=== PATIENT | female | born 1980 | race African-American/Black ===

== ENCOUNTER 2018-02-10 06:08 | Inpatient (IN) ==
[2018-02-04 11:18] LABS: Basophils # 0.1 10*3/uL (0.0-0.2); Basophils % 1.1 % (0.0-0.8); Eosinophils # 0.1 10*3/uL (0.0-0.87); Eosinophils % 2.2 % (0.00-10.9); Hematocrit 42.3 VOL% (35.7-47.0); Hemoglobin 13.8 GM/DL (12.0-16.0); Immature Granulocytes % 0.2 %; Immature Granulocytes Absolute 0.01 #; Lymphocytes # 2.1 10*3/uL (1.4-4.0); Lymphocytes % 46.7 % (21.3-54.2); Mean Corpuscular HGB Conc 32.6 GM/DL (32-36); Mean Corpuscular Hemoglobin 32 PG (27-34); Mean Platelet Volume 11.6 FL (9.6-12.0); Monocytes # 0.3 10*3/uL (0.11-0.8); Monocytes % 5.6 % (1.7-12.7); Neutrophils % 44.2 % (38.7-73.9); Platelet Count 196 T/CUMM (130-400); Red Blood Count 4.36 MC/CUMM (3.8-5.5); Red Cell Distribution Width 12.9 % (9.3-17.3); White Blood Count 4.5 T/CUMM (4-12)
[2018-02-04 11:29] LABS: Apearance,Urine Slightly Hazy (Clear); Bacteria,Urine Occasional /HPF (Few); Bilirubin,Urine Negative (Negative); Blood, Urine Negative (Negative); Glucose,Urine (UA) Negative (Negative); Ketones,Urine Negative (Negative); Mucus,Urine Occasional /LPF (Occasional); Nitrite,Urine Negative (Negative); Protein,Urine Negative; RBC,Urine 2 /HPF (0-4); Squamous Epithelial Cell,Urine Occasional /HPF (0-10); Urine Color Yellow (Yellow); Urine Urobilinogen < 2.0 EU/DL (0.2-1.0); WBC,Urine <1 /HPF (0-6)
[2018-02-04 11:43] LABS: Alanine Aminotransferase 19 U/L (13-56); Albumin 3.6 G/DL (3.4-5.0); Alkaline Phosphatase 80 U/L (45-117); Amylase 46 U/L (25-115); Aspartate Amino Transferase 23 U/L (0-37); Bilirubin,Total < 0.39 MG/DL (0.2-1.0); Blood Urea Nitrogen 8 MG/DL (7-18); Calcium 8.8 MG/DL (8.5-10.1); Cholesterol 178 MG/DL (50-200); Glucose 90 MG/DL (74-106); HDL Cholesterol 62 MG/DL (40-60); Osmolality,Calculated 280.1 MOS/KG (273-304); Potassium 3.9 MMOL/L (3.5-5.1); Risk Ratio 2.87; Sodium 142 MMOL/L (136-145); Total Protein 7.3 G/DL (6.4-8.3); Triglycerides 60 MG/DL (2-150)
[2018-02-04 12:45] LABS: HIV Antigen/Antibody Result Nonreactive (Nonreactive)
[~2018-02-10 06:08] MED LIST: AMPICILLIN/SULBACTAM 3,000 MG VIAL ONE; ceFAZolin 1,000 MG VIAL ONE
[2018-02-10] MEDS ORDERED: AMPICILLIN/SULBACTAM 3,000 MG in SODIUM CHLORIDE 0.9% 100 ML IV ONE (07:00)
[2018-02-10] MEDS ORDERED: ceFAZolin 1,000 MG in SYRINGE 1 EACH IV ONE (07:00)
[2018-02-10] MEDS ORDERED: LACTATED RINGERS 1,000 ML IV SCH (07:00)
[2018-02-10] MEDS ORDERED: DIAZEPAM 5 MG TABLET PO ONE (07:27)
[2018-02-10] MEDS ORDERED: FAMOTIDINE 20 MG TABLET PO ONE (07:27)
[2018-02-10] MEDS ORDERED: DIAZEPAM 5 MG TABLET ONE (07:42)
[2018-02-10] MEDS ORDERED: FAMOTIDINE 20 MG TABLET ONE (07:42)
[2018-02-10] MEDS ORDERED: TISSUE ADHESIVE 1 EACH APPLICATOR TOP ONE (13:58)
[2018-02-10] MEDS ORDERED: SEVOFLURANE 1 UNIT/15 MINUTE INH ONE (14:20)
[2018-02-10] MEDS ORDERED: fentaNYL 100 MCG/2 ML VIAL ONE (14:20)
[2018-02-10] MEDS ORDERED: MIDAZOLAM 2 MG/2 ML VIAL ONE (14:20)
[2018-02-10] MEDS ORDERED: PROPOFOL 200 MG/20 ML VIAL IV ONE (14:20)
[2018-02-10] MEDS ORDERED: ePHEDrine 50 MG/ML AMP ONE (14:22)
[2018-02-10] MEDS ORDERED: ONDANSETRON 4 MG/2 ML VIAL ONE ×2 (14:22→14:31)
[2018-02-10] MEDS ORDERED: DEXAMETHASONE 10 MG/1 ML VIAL ONE (14:22)
[2018-02-10] MEDS ORDERED: PHENYLEPHRINE 1 MG/10 ML SYRINGE IV ONE (14:23)
[2018-02-10] MEDS ORDERED: GLYCOPYRROLATE 0.4 MG/2 ML VIAL ONE (14:23)
[2018-02-10] MEDS ORDERED: ACETAMINOPHEN 1,000 MG/100 ML VIAL IV ONE (14:23)
[2018-02-10] MEDS ORDERED: ROCURONIUM 100 MG/10 ML VIAL IV ONE (14:23)
[2018-02-10] MEDS ORDERED: LACTATED RINGERS 1,000 ML IV ONE (14:23)
[2018-02-10] MEDS ORDERED: NEOSTIGMINE 10 MG/10 ML VIAL ONE (14:23)
[2018-02-10] MEDS ORDERED: ONDANSETRON 4 MG/2 ML VIAL IV PRN (14:25)
[2018-02-10] MEDS ORDERED: MORPHINE 10 MG/1 ML VIAL ONE (14:31)
[2018-02-10] MEDS: MORPHINE 10 MG/1 ML VIAL IV PRN ×5 (14:35→14:58)
[2018-02-10] MEDS ORDERED: HYDROmorphone PCA 30 MG/30 ML SYRINGE IV SCH (15:24)
[2018-02-10] MEDS ORDERED: IBUPROFEN 800 MG TABLET PO PRN (15:24)
[2018-02-10] MEDS ORDERED: MAGNESIUM HYDROXIDE SUSP 30 ML UDCUP PO PRN (15:24)
[2018-02-10] MEDS ORDERED: NALOXONE 0.4 MG/ML VIAL IV PRN (15:24)
[2018-02-10] MEDS ORDERED: DOCUSATE SODIUM 100 MG CAPSULE PO PRN (15:24)
[2018-02-10] MEDS ORDERED: BISACODYL 10 MG SUPP RECTAL PRN (15:24)
[2018-02-10] MEDS ORDERED: BENZOCAINE/MENTHOL LOZENGE 18/BOX PO PRN (15:24)
[2018-02-10] MEDS ORDERED: ACETAMINOPHEN 325 MG TABLET PO PRN (15:24)
[2018-02-10] MEDS ORDERED: HYDROmorphone 2 MG/1 ML VIAL IV PRN (15:31)
[2018-02-10] MEDS: PROMETHAZINE 25 MG/1 ML VIAL IM PRN (16:14)
[2018-02-10] MEDS: LACTATED RINGERS 1,000 ML IV SCH (17:16)
[2018-02-10] MEDS: ceFAZolin 1,000 MG in SYRINGE 1 EACH IV SCH (20:39)
[2018-02-10] MEDS ORDERED: SIMETHICONE CHEW 80 MG TABLET PO PRN (21:14)
[2018-02-10] MEDS: ONDANSETRON 4 MG/2 ML VIAL IV PRN (22:41)
[2018-02-10] MEDS: MEPERIDINE 25 MG/1 ML VIAL IV PRN (22:44)
[2018-02-11] MEDS: LACTATED RINGERS 1,000 ML IV SCH ×3 (01:01→18:13)
[2018-02-11] MEDS: ONDANSETRON 4 MG/2 ML VIAL IV PRN ×2 (03:12→16:15)
[2018-02-11] MEDS: MEPERIDINE 25 MG/1 ML VIAL IV PRN ×2 (03:27→06:42)
[2018-02-11] MEDS: ceFAZolin 1,000 MG in SYRINGE 1 EACH IV SCH (03:32)
[2018-02-11] MEDS: PROMETHAZINE 25 MG/1 ML VIAL IM PRN (06:25)
[2018-02-11 07:21] LABS: Basophils % 0.1 % (0.0-0.8); Hematocrit 44.1 VOL% (35.7-47.0); Hemoglobin 14.8 GM/DL (12.0-16.0); Immature Granulocytes % 0.7 %; Immature Granulocytes Absolute 0.09 #; Lymphocytes # 1.8 10*3/uL (1.4-4.0); Lymphocytes % 12.7 % (21.3-54.2); Mean Corpuscular HGB Conc 33.6 GM/DL (32-36); Mean Corpuscular Hemoglobin 32 PG (27-34); Mean Corpuscular Volume 94.2 FL (87-102); Mean Platelet Volume 12.4 FL (9.6-12.0); Monocytes # 0.4 10*3/uL (0.11-0.8); Neutrophils # 11.6 10*3/uL (1.4-7.4); Neutrophils % 83.5 % (38.7-73.9); Platelet Count 161 T/CUMM (130-400); Red Blood Count 4.68 MC/CUMM (3.8-5.5); Red Cell Distribution Width 12.9 % (9.3-17.3); White Blood Count 13.8 T/CUMM (4-12)
[2018-02-11] MEDS ORDERED: HYDROmorphone 2 MG/1 ML VIAL IV PRN (09:23)
[2018-02-11] MEDS: METOCLOPRAMIDE 10 MG/2 ML VIAL IV PRN ×2 (10:19→21:34)
[2018-02-11] MEDS: VENLAFAXINE 37.5 MG TABLET PO SCH (10:41)
[2018-02-11] MEDS ORDERED: ALUMINUM/MAGNES/SIMETH MAX STR 30 ML UDCUP PO PRN (14:10)
[2018-02-11] MEDS: amLODIPine 5 MG TABLET PO SCH (15:57)
[2018-02-11] MEDS ORDERED: ACETAMINOPHEN 500 MG TABLET PO PRN (16:00)
[2018-02-11] MEDS: FAMOTIDINE 20 MG/2 ML VIAL IV SCH (18:16)
[2018-02-12] MEDS: LACTATED RINGERS 1,000 ML IV SCH (02:30)
[2018-02-12] MEDS: FAMOTIDINE 20 MG/2 ML VIAL IV SCH ×2 (06:14→17:52)
[2018-02-12] MEDS: VENLAFAXINE 37.5 MG TABLET PO SCH (09:11)
[2018-02-12] MEDS: amLODIPine 5 MG TABLET PO SCH (09:11)
[2018-02-13 07:53] VITALS: BP 121/79
[2018-02-13] MEDS: amLODIPine 5 MG TABLET PO SCH (08:22)
[2018-02-13] MEDS: VENLAFAXINE 37.5 MG TABLET PO SCH (08:22)
[2018-02-13] MEDS ORDERED: INFLUENZA VIRUS VACCINE 0.5 ML SYRINGE IM ONE (13:22)
[2018-02-13] MEDS ORDERED: ESTRADIOL VALERATE IM 100 MG/5 ML VIAL IM ONE (14:43)
== END 2018-02-13 16:55 | disposition home or self-care (01) | DRG 742 ==
LOC: N.OR 06:08 → N.SDSINP 06:09 → N.OB 14:11
PROVIDERS: ADMIT Obstetrics & Gynecology; ATTEND Obstetrics & Gynecology
PROC: LAPCHOL (2018-02-10 12:25)